=== PATIENT | female | born 1975 | race Caucasian/White ===

== ENCOUNTER 2016-08-28 13:48 | Emergency (ER) | payer OTHER ==
[~2016-08-28] VITALS: Ht 165.1 cm; Wt 77.1 kg
[2016-08-28 14:37] VITALS: BP 121/73
== END 2016-08-28 14:38 | disposition home or self-care (01) ==
LOC: ER 13:57
DX: O99.89 Other specified diseases and conditions complicating pregnancy, childbirth and the puerperium (principal); Z3A.17 17 weeks gestation of pregnancy
CPT/HCPCS: 99284; A4606; Z7610